=== PATIENT | female | born 1990 | race Caucasian/White ===

== ENCOUNTER 2016-11-26 15:21 | Emergency (ER) | payer MEDICAID ==
[~2016-11-26 15:21] MED LIST: BENZ1TAB2 PO; BISA10SU5 RE; DIVA500T59 PO; FERR220E4 OR; LORA1TAB12 PO; MEDR150I IM; PAR20T PO; QUET300T23 PO; RISP3TAB44 PO; TRAZ150T79 PO
[2016-11-26 15:57] VITALS: BP 114/75
== END 2016-11-26 18:14 | disposition home or self-care (01) ==
LOC: ER 15:29
DX: S01.01XA Laceration without foreign body of scalp, initial encounter (principal); Z79.899 Other long term (current) drug therapy; E07.9 Disorder of thyroid, unspecified; W22.8XXA Striking against or struck by other objects, initial encounter; Y93.89 Activity, other specified; Y99.8 Other external cause status; Y92.098 Other place in other non-institutional residence as the place of occurrence of the external cause
CPT/HCPCS: 12001

== ENCOUNTER 2016-12-06 15:30 | Emergency (ER) | payer MEDICAID ==
[2016-12-06 16:39] VITALS: BP 107/58
== END 2016-12-06 16:53 | disposition home or self-care (01) ==
LOC: ER 15:39
DX: S01.01XD Laceration without foreign body of scalp, subsequent encounter (principal); Z48.02 Encounter for removal of sutures; Z79.899 Other long term (current) drug therapy; E07.9 Disorder of thyroid, unspecified

== ENCOUNTER 2020-07-02 09:35 | Emergency (ER) | payer MEDICAID ==
[~2020-07-02] VITALS: Ht 152.4 cm; Wt 49.9 kg
[~2020-07-02 09:35] MED LIST changes: +DIVA500T13 PO; -DIVA500T59 PO; -LORA1TAB12 PO; +LORA1TAB23 PO; -TRAZ150T79 PO; +TRAZ1TAB12 PO
[2020-07-02] MEDS ORDERED: ACETAMINOPHEN 650 mg PER 20.3 mL UD GT ONE (12:00)
[2020-07-02] MEDS ORDERED: BACITRACIN INJ 50000 UNIT VIAL TOP ONE (12:00)
[2020-07-02] MEDS ORDERED: NEOMYCIN-BACITRACIN-POLYM 15GM TOP OINT TOP ONE (12:30)
[2020-07-02 16:55] VITALS: BP 106/68
[2020-07-03] MEDS ORDERED: NEOMYCIN-BACITRACIN-POLYM 15GM TOP OINT TOP ONE (10:00)
== END 2020-07-02 16:55 | disposition home or self-care (01) ==
LOC: EDBD 09:35 → ER 09:35 → EDUNIT# 09:35 → ER 16:55
DX: S00.83XA Contusion of other part of head, initial encounter (principal); D32.0 Benign neoplasm of cerebral meninges; G93.89 Other specified disorders of brain; Z79.899 Other long term (current) drug therapy; Y08.89XA Assault by other specified means, initial encounter; Y93.89 Activity, other specified; Y92.89 Other specified places as the place of occurrence of the external cause; Y99.8 Other external cause status
CPT/HCPCS: 70450; 70486; 72125